=== PATIENT | male | born 1970 | race Caucasian/White ===

== ENCOUNTER 2019-04-27 12:07 | Inpatient (IN) | payer OTHER ==
[~2019-04-27] VITALS: Ht 193 cm; Wt 92.3 kg
--- NOTE | ~2019-04-27 | CON ---
[address] [address] CONSULTATION Name: NALDO CHINO Room: [address] IN .R.#: [id number] Admission: 04/27/19 Attend Phys: Trish Whitman Discharge: Date of : 74 Report #: [id number] THIS REPORT FOR: //name// CC: Trish Villareal TAX COMPLIANCE REPRESENTATIVE DICTATED BY: Kiara Bruner [facility] DATE OF SERVICE: 04/29/2019 Please note at the time of this dictation, the patient was seen and physically examined by myself. REASON FOR CONSULTATION: Ongoing nausea, vomiting, abdominal pain, history of gastroparesis. HISTORY OF PRESENT ILLNESS: This is a 49-year-old male who presents to the Emergency Room with having intractable nausea and vomiting for the past 3 days. When he gets this, he has severe abdominal pain throughout his abdomen. He has not noticed any bright red blood or any coffee ground emesis. He has not noted any bright red blood or black tarry stools either. He states he may have bouts of constipation up to a week and then he will have diarrhea preceding that. The patient states that he will have episodes of this reoccurring 2-3 times a year and no one can figure out what is going on. He states back in 2014, he saw [facility]. He had upper and lower scopes done, which essentially he states were negative. He had a gastric emptying test done and they said it was slow and they placed him on Reglan. The patient states he has been taking that ever since and then his PCP refills that for him on a regular basis. In talking with the patient, it is noted that he does have a fine tremor, asking him further if this tremor has gotten worse since being on the Reglan and he is unclear of that. He states he does have a family history of tremors that has been noted within his father in the past as well. He has never seen Neurology regarding this and has never made an association with taking the Reglan that that has worsened his tremor. In talking with his mother, she came in during half of the consultation. She states that his tremors are not present all the time whether or not these are associated with any of his drinking, it is hard to detect. The patient tells me that he only drinks 5-6 beers a day. However, in previous notes in reviewing his chart, he states that he drinks 5 or 6 pack every day along with vodka tonics on the weekends. It is hard to tell then, which is the true depiction. Prior to coming in, he had not drank for 3 days so as to whether or not he is having some alcohol withdrawal or not, it is also noted that he does have some elevated LFTs as well with an acute hepatitis panel being negative on admission. He does also complain of gas and bloating that will make his acid reflux worse, which he does [place] [address] CONSULTATION Name: NALDO CHINO Room: [address] [id number] Admission: 04/27/19 Attend Phys: Trish Whitman Discharge: Date of : 74 Report #: [id number] ALLERGIES: No known drug allergies. MEDICATIONS FROM HOME: Zofran, Zoloft, metoclopramide and Prilosec. PAST MEDICAL HISTORY: Nausea, vomiting, gastroparesis, depression, GERD, and history of alcoholism. PAST SURGICAL HISTORY: Vasectomy, otherwise negative. FAMILY HISTORY: Noncontributory. SOCIAL HISTORY: Alcohol use, he does state daily at various who talks to him, he denies any marijuana use and he denies any illegal drug use at this time. REVIEW OF SYSTEMS: Twelve-point review of systems is essentially negative except what is mentioned in the HPI. PHYSICAL EXAMINATION: VITAL SIGNS: Temperature 36.6, pulse 82, respirations 14, blood pressure 129/91. HEART: Regular rate and rhythm. LUNGS: Diminished. ABDOMEN: Soft, positive bowel sounds in all 4 quadrants with some diffuse tenderness noted to palpation. LABORATORY DATA: Hemoglobin on admission was 17.1, likely dehydrated, he is 13.6, white count of 4, platelets 187. GFR is 90, total bilirubin 0.9, alkaline phosphatase 61, ALT 130, AST is 119. His albumin is 3.1. CT showed fatty liver, ultrasound confirming that, gallbladder is normal. Acute hepatitis was negative at this time. He was positive for benzos as well. It was noted back in 10/2017 from [facility] that his total bilirubin was 2.9 at that particular time, which was one of his hospitalizations. IMPRESSION: 1. Nausea and vomiting has improved. 2. Abdominal pain, improved. 3. Gastroparesis. 4. Gas and bloating, recurrent, long-term PPI use. 5. Elevated LFTs. 6. Fatty liver disease. 7. Tremors. 8. Alcohol use regularly. 9. Urinary tract infection. PLAN: 1. Need to obtain medical records from [facility] [place] [address] CONSULTATION Name: NALDO CHINO Room: [address] IN [facility]#: [id number] Admission: 04/27/19 Attend Phys: Trish Whitman Discharge: Date of : 74 Report #: [id number] [facility] to see what has been done on previous admissions and workup. 2. Outpatient breath test in our office. 3. Once we obtain these records and review and discuss with Dr. Orozco, we will have further recommendations at that time. Thank you for allowing us to participate in this patient's care. Please do not hesitate to call with any questions in regard to this consult. By: [id number] [id number] Orozco MD /nt
[~2019-04-27 12:07] MED LIST: HYDROCODONE-AP1 EAC6 PO; NAPROSYN500 MG PO; NORCO 5-325 TA1 EACH PO; ROBAXIN 750 MG750 M1 PO; SKELAXIN 800 M800 MG PO; ZANTAC 150MG T150 MG PO
[2019-04-27 12:23] VITALS: BP 152/103
[2019-04-27] MEDS ORDERED: ZOLOFT25 MG PO (12:25)
[2019-04-27] MEDS ORDERED: REGLAN 10 MG TA10 MG PO (12:25)
[2019-04-27] MEDS ORDERED: PRILOSEC OTC20 MG PO (12:25)
[2019-04-27] MEDS ORDERED: ZOFRAN4 MG PO (12:26)
[2019-04-27 12:43] LABS: ABSOLUTE EOSINOPHILS 0.1 thou/uL (0.0-0.7); ABSOLUTE LYMPHOCYTES 1.4 thou/uL (0.8-5.3); ABSOLUTE MONOCYTES 0.6 thou/uL (0.0-1.2); ABSOLUTE NEUTROPHILS 3.3 thou/uL (1.6-8.1); BASOPHILS 0.8 %; EOSINOPHILS 1.4 %; HEMATOCRIT 48.4 % (42.0-52.0); HEMOGLOBIN 17.1 gm/dL (14.0-18.0); LYMPHOCYTES 26.1 %; MCH 33.3 pg (26.0-34.0); MCHC 35.4 g/dL (28.0-37.0); MCV 94.2 fL (80.0-100.0); MONOCYTES 10.3 %; MPV 7.7 fl. (7.2-11.1); NUCLEATED RBCS 0 /100WBC; PLATELET COUNT* 260 thou/uL (150-400); POLYS 61.4 %; RBC 5.14 mil/uL (4.50-6.00); RDW-CV 13.4 % (10.5-14.5); WBC 5.4 thou/uL (4.0-11.0)
[2019-04-27 12:55] LABS: CALCIUM 10.2 mg/dL (8.5-10.1); CREATININE 1.2 mg/dL (0.6-1.3); INR 1.1; POTASSIUM 3.5 mmol/L (3.5-5.1); PROTIME 11.1 Seconds (9.20-11.50)
[2019-04-27 13:00] LABS: ALBUMIN 4.5 g/dL (3.4-5.0); TOTAL BILIRUBIN 2.1 mg/dL (<0.1-1.0)
[2019-04-27 13:04] LABS: URINE BLOOD 3+ (Negative); URINE CLARITY CLEAR; URINE COLOR DARK YELLOW; URINE GLUCOSE-RANDOM TRACE (Negative); URINE KETONES TRACE (Negative); URINE LEUKOCYTES-REFLEX NEGATIVE (Negative); URINE PROTEIN 2+ (Negative); URINE UROBILINOGEN >= 8.0 E.U./dl (0.2-1.0)
[2019-04-27 13:06] LABS: ICTOTEST (BILI CONFIRMATORY) Negative (Negative); URINE BILIRUBIN 1+ (Negative); URINE NITRITE-REFLEX POSITIVE (Negative)
[2019-04-27 13:10] LABS: SQUAMOUS NONE SEEN /LPF (0-3)
[2019-04-27 13:11] LABS: URINE RBC >20 Many /HPF (0-2)
[2019-04-27 13:12] LABS: AMP/METHAMP Negative (Negative); BACTERIA-REFLEX 1-9 Few /HPF (None Seen); BARBITURATES Negative (Negative); BENZODIAZEPINES POSITIVE (Negative); COCAINE Negative (Negative); METHADONE Negative (Negative); OPIATES Negative (Negative); PCP Negative (Negative); THC Negative (Negative); URINE WBC-REFLEX 0-5 Rare /HPF (0-5)
[2019-04-27 13:13] LABS: CASTS None Seen /LPF (None Seen); CRYSTALS None Seen /LPF (None Seen); MUCUS >6 Heavy strn/LPF (None Seen)
[2019-04-27 15:14] VITALS: BP 147/96
--- NOTE | 2019-04-27 17:28 | NUR ---
ADMISSION COMPLETED IN ED PRIOR TO TRANSFERING PATIENT TO [facility] AND ASSUMING CARE ON THE INPATIENT SIDE.
[2019-04-27 17:29] VITALS: BP 147/96
[2019-04-27 20:00] VITALS: BP 123/86
--- NOTE | 2019-04-27 20:15 | NUR ---
PATIENT TRANSFERED TO INPATIENT UNIT. TELEMETRY APPLIED. REPORT GIVEN TO NIGHT NURSE.
[2019-04-28] VITALS: BP 137/95
--- NOTE | 2019-04-28 02:02 | NUR ---
ASSUMED PT CARE AT APPROX 1930. PT IS AWAKE AND ORIENTED X4. VSS ON ROOM AIR. CAMERA REPAIRER IN PLACE TRACING SR. PT COMPLAINED OF ABDOMNAL PAIN, PARTIALLY RELIEVED BY PAIN MEDS GIVEN PER SEP. CIWA DONE CHARTED. CALL LIGHT WITHIN REACH. FALL PRECAUTIONS IN PLACE. HOURLY ROUNDING DONE FOR PT SAFETY. REPORT GIVEN TO ARCHIE DENNIS.
[2019-04-28 04:00] VITALS: BP 123/85
[2019-04-28 05:37] LABS: HEMATOCRIT 40.3 % (42.0-52.0); MCH 32.7 pg (26.0-34.0); MCV 96.2 fL (80.0-100.0); RBC 4.19 mil/uL (4.50-6.00); RDW-CV 13.5 % (10.5-14.5); WBC 3.9 thou/uL (4.0-11.0)
[2019-04-28 05:56] LABS: HEMOGLOBIN 13.7 gm/dL (14.0-18.0)
[2019-04-28 06:09] LABS: CALCIUM 8.6 mg/dL (8.5-10.1); CREATININE 0.9 mg/dL (0.6-1.3); POTASSIUM 3.4 mmol/L (3.5-5.1)
--- NOTE | 2019-04-28 06:16 | NUR ---
ASSUMED PATIENT CARE AT 0200. PATIENT RESTED QUIETLY THROUGHOUT THE REST OF SHIFT.
[2019-04-28 07:33] VITALS: BP 124/87
--- NOTE | 2019-04-28 08:44 | EKG ---
[place] [address] ELECTROCARDIOGRAM REPORT Name: NALDO CHINO Room: [address] ADM IN .R.#: [id number] Admission: 04/27/19 Attend Phys: Trish Whitman Discharge: Date of : 74 Report #: [id number] THIS REPORT FOR: //name// [facility] ED Test Date: 2019-04-27 Test Time: 15:09:23 Pat Name: NALDO CHINO Department: Room: [facility] Gender: M Digital Marketing Analyst: TERESITA : 1970 Requested By: Timothy Hutchinson Order Number: [id number] MD: Darin Vazquez Measurements Intervals [place] Rate: 79 P: 31 FL: 183 QRS: -36 QRSD: 106 T: 62 QT: 419 QTc: 481 Interpretive Statements Sinus rhythm Incomplete RBBB and LAFB Borderline low voltage, extremity leads Abnormal R-wave progression, early transition Borderline prolonged QT interval Baseline wander in lead(s) I,III,aVL No previous ECG available for comparison Electronically Signed On 04-28-2019 8:44:36 CDT by Darin Vazquez [email or web address] <ELECTRONICALLY SIGNED> By: Darin Vazquez MD, FACC 04/28/19 0844 1509 1509 Darin Vazquez MD, FACC /EPI
--- NOTE | 2019-04-28 09:04 | NUR ---
ASSUMED CARE OF PT AT 0730. PT RESTING IN BED. PT A&0X4, DENIES ANY PAIN AT THIS TIME, PT GIVEN PAIN MEDICATION BY NOC SHIFT AT APPROXIMATELY 0545. PT DENIES ANY NAUSEA OR SHORTNESS OF BREATH. CIWA COMPLETED-2. REFER TO CHARTING. TRACING SR ON THE PAROLE OFFICER. ON RA SAT 97%. PT UP WITH SBA TO BATHROOM. PT NPO FOR ABDOMINAL ULTRASOUND THIS AM. PT GOAL FOR TODAY IS MAINTAIN CIWA BELOW 5, INCREASE ACTIVITY, REPLACE POTASSIUM PER ELECTROLYTE PROTOCOL AND INITIATE DISCHARGE PLANNING. AM ASSESSMENT CHARTED. MEDICATIONS PER SEP. PT REPOSITIONS SELF. HOURLY ROUNDING OBSERVED. BED IN LOW POSITION. BED ALARM IN PLACE. FALL PRECAUTIONS IN PLACE. CALL LIGHT WITHIN REACH. WILL CONTINUE PLAN OF CARE.
[2019-04-28 11:52] VITALS: BP 114/75
[2019-04-28 12:23] LABS: SGOT 153 U/L (15-37); SGPT 126 U/L (30-65)
--- NOTE | 2019-04-28 14:21 | NUR ---
Pt is A&O. Resides at home with family. Active and independent. No DME. No hx of HH or SNF. Goal is home at dc, Pt declined ETOH tx info.
[2019-04-28 17:00] VITALS: BP 113/70
--- NOTE | 2019-04-28 17:42 | NUR ---
NO ACUTE CHANGES THROUGHOUT SHIFT. REFER TO CHARTING. PT PROGRESSING TOWARDS GOALS- CIWA HAS REMAINED 2-3 TODAY WITH ORAL SCHEDULED ATIVAN. NO IV ATIVAN NEEDED. POTASSIUM REPLACED PER ELECTROLYTE PROTOCOL. PT HAD ABDOMINAL ULTRASOUND- REFER TO RESULTS. FAMILY AT BEDSIDE THIS AFTERNOON. CONTINUES TO TRACE SR ON THE SUMMER SESSIONS DIRECTOR. ON RA SAT UPPER 90'S. PT DENIES ANY PAIN OR SHORTNESS OF BREATH THROUGHOUT SHIFT. PT UP WITH SBA TO BATHROOM. IVF. MEDICATIONS PER SEP. PT REPOSITIONS SELF. HOURLY ROUNDING OBSERVED. BED IN LOW POSITION. BED ALARM IN PLACE. FALL PRECAUTIONS IN PLACE. CALL LIGHT WITHIN REACH. WILL CONTINUE PLAN OF CARE.
[2019-04-28 20:00] VITALS: BP 113/80
[2019-04-29] VITALS (8 sets, daily range): BP systolic 122–146; BP diastolic 82–98
--- NOTE | 2019-04-29 04:36 | NUR ---
ASSUMED PT CARE AT APPROX 1930. PT IS AWAKE AND ORIENTED X4. VSS ON ROOM AIR. AUTOMATIC SPINNING LATHE SETTER IN PLACE TRACING SR. ALCOHOL WITHDRAWAL ASSESMENT DONE CHARTED. PT C/O LUQ PAIN THAT IS PARTIALLY RELIEVED BY PAIN MEDICATION GIVEN PER MAR. CALL LIGHT WITHIN REACH. FALL PRECAUTIONS IN PLACE. HOURLY ROUNDING DONE FOR PT SAFETY.
[2019-04-29 05:22] LABS: HEMOGLOBIN 13.6 gm/dL (14.0-18.0); MCV 97.1 fL (80.0-100.0); MPV 8.2 fl. (7.2-11.1); RBC 4.12 mil/uL (4.50-6.00); RDW-CV 13.4 % (10.5-14.5)
[2019-04-29 05:52] LABS: ALBUMIN 3.1 g/dL (3.4-5.0); CALCIUM 8.2 mg/dL (8.5-10.1); CREATININE 0.9 mg/dL (0.6-1.3); POTASSIUM 3.9 mmol/L (3.5-5.1); TOTAL BILIRUBIN 0.9 mg/dL (<0.1-1.0); TOTAL PROTEIN 6.5 g/dL (6.4-8.2)
[2019-04-29 10:10] LABS: HEPATITIS B SURFACE AG Negative (Negative)
--- NOTE | 2019-04-29 11:06 | NUR ---
Cm provided Pt with [facility] community resources.
--- NOTE | 2019-04-29 17:09 | NUR ---
ASSUMED CARE OF PT AT 0730. PT A&0X4, DENIES ANY PAIN OR SHORTNESS OF BREATH. PT SLEEPY THROUGHOUT SHIFT. TRACING SR ON THE PIGMENT WEIGHER. CIWAS CHARTED. RANGING 2-4, SCHEDULED PO ATIVAN CHARTED. GI CONSULT IN PLACE. STOOL TO BE OBTAINED. PT MOTHER AT BEDSIDE THIS AFTERNOON AND UPDATED ON CURRENT PLAN OF CARE. PT UP WITH 1 ASSIST TO BATHROOM. IVF. ON RA SAT UPPER 90'S. AM ASSESSMENT CHARTED. MEDICATIONS PER SEP. PT REPOSITIONS SELF. HOURLY ROUNDING OBSERVED. BED IN LOW POSITION. BED ALARM IN PLACE. FALL PRECAUTIONS IN PLACE. CALL LIGHT WITHIN REACH. WILL CONTINUE PLAN OF CARE.
[2019-04-30] VITALS (7 sets, daily range): BP systolic 116–143; BP diastolic 77–94
--- NOTE | 2019-04-30 06:09 | NUR ---
ASSUMED PATIENT CARE AT 1900. ASSESSMENT COMPLETED CHARTED. VSS. CIWA CHARTED. PRN MEDS GIVEN PER EMAR. PATIENT FELL, DOCTOR NOTIFIED, FAMILY NOTIFIED, POST-FALL ASSESSMENT CHARTED. PRN SITTER AT BEDSITE FOR PATIENT SAFETY, PATIENT AGITATED AT BEGINNING OF SHIFT AND ATTEMPTING TO LEAVE. PATIENT IMPULSIVE THROUGH THE NIGHT. HOURLY ROUNDING IN PLACE FOR PATIENT SAFETY. CLWR.
--- NOTE | 2019-04-30 19:00 | NUR ---
ASSUMED CARE OF PT AT 0730. PT A&02-4, FORGETFUL AND CONFUSED AT TIMES. IMPULSIVE AT TIMES. SITTER AT BEDSIDE. CIWA CHARTED. PT IMPULSIVE THIS AFTERNOON- DEMANDING TO FIND HIS CLOTHES AND LEAVE. PT UNSTEADY ON FEET. SECURITY NOTIFIED-, MOTHER AT BEDSIDE, PT WILLING TO GET BACK IN BED. SCHEDULED PO ATIVAN GIVEN WITH RELIEF. PT CURRENTLY SITTING UP IN BED WITH SITTER AT BEDSIDE AND MOTHER AT BEDSIDE WELL. PT CURRENTLY A&0X4, DENIES ANY PAIN OR SHORTNESS OF BREATH. TRACING SR ON THE RECEIVING BARN CUSTODIAN. ON RA SAT UPPER 90'S. PT HAD A BOWEL MOVEMENT TODAY-GUIAC NEGATIVE. PT NPO AFTER MIDNIGHT FOR EGD TOMORROW. AM ASSESSMENT CHARTED. MEDICATIONS PER SEP. PT REPOSITIONS SELF. HOURLY ROUNDING OBSERVED. BED IN LOW POSITIO. BED ALARM IN PLACE. FALL PRECAUTIONS IN PLACE. CALL LIGHT WITHIN REACH. WILL CONTINUE PLAN OF CARE.
[2019-05-01] VITALS (9 sets, daily range): BP systolic 108–131; BP diastolic 72–91
[2019-05-01 04:42] LABS: HEMATOCRIT 41.6 % (42.0-52.0); MCH 32.8 pg (26.0-34.0); MCHC 33.6 g/dL (28.0-37.0); MCV 97.6 fL (80.0-100.0); MPV 8.6 fl. (7.2-11.1); RBC 4.26 mil/uL (4.50-6.00); RDW-CV 13.6 % (10.5-14.5)
[2019-05-01 05:01] LABS: CALCIUM 9.2 mg/dL (8.5-10.1); POTASSIUM 3.6 mmol/L (3.5-5.1)
--- NOTE | 2019-05-01 05:57 | NUR ---
PT SLEPT MOST OF SHIFT. ASSESSMENT DOCUMENTED. MEDS GIVEN PER E-MAR. IV PATENT, FLUIDS INFUSING. NO REPORTS OF PAIN OR NAUSEA THIS SHIFT. SITTER REMAINED AT BEDSIDE. PT NPO AFTER 0000. WILL CONTINUE WITH PLAN OF CARE.
--- NOTE | 2019-05-01 11:23 | NUR ---
Pt having EGD today.
--- NOTE | 2019-05-01 18:03 | NUR ---
VSS, ASSUMED CARE IN THE AM, ASSESSMENT PERFORMED AND CHARTED, FALL PRECAUTIONS IN PLACE AND CALL LIGHT IN REACH, PT IS A&O4, ON RA, TRACING SR/ST ON THE MONITOR, PT DENIES ANY PAIN AT THIS TIME, PT HAS COMPLETED EDG, ETOH W/ IS AT 2, PT IS UP WITH STAND BY, HOURLY ROUNDS COMPLETED AND WILL FOLLOW WITH PLAN OF CARE.
[2019-05-02] VITALS (7 sets, daily range): BP systolic 103–129; BP diastolic 69–82
--- NOTE | 2019-05-02 04:46 | NUR ---
PT ALERT AND ORIENTED. HR TACHY. VSS ON RA. ASSESSMENT DOCUMENTED. FALL PRECAUTION IN PLACE. MEDS GIVEN PER EMAR. ONLY SCHLD ATIVAN GIVEN THIS SHIFT. PT SLEPT MOST OF SHIFT. CALL LIGHT WITHIN REACH. HOURLY ROUNDIGNS MADE. WILL CONTINUE PLAN OF CARE.
--- NOTE | 2019-05-02 09:11 | NUR ---
VSS, ASSUMED CARE IN THE AM, ASSESSMENT PERFORMED AND CHARTED, FALL PRECAUTIONS IN PLACE AND CALL LIGHT IN REACH, PT IS A&O4 AND UP WITH STAND BY ASSIST, PT IS ON RA AND IS TRACING SR ON THE MONITOR, PT STATES PAIN IN L LOWER ABD, PT GOAL IS SAFETY AND IMPROVE ACTIVITY, WILL FOLLOW WITH PLAN OF CARE, ETOH W/ DRAWL.
[2019-05-03] VITALS (7 sets, daily range): BP systolic 106–148; BP diastolic 64–92
--- NOTE | 2019-05-03 01:33 | NUR ---
ASSUMED CARE AT 1930. PATIENT PLEASANT AND COOPERATIVE WITH CARES. CIWA 2 R/T TREMORS. REPORT FROM DAYSHIFT INCLUDED THAT MOTHER OF PATIENT REPORTED PATIENT HAD MILD TREMORS PRIOR TO THIS ADMISSION. UP WITH SAFE GAIT IN ROOM INDEPENDENTLY. VITAL SIGNS STABLE WITH INTERMITTANT TACHYCARDIA WITH ACTIVITY. PATIENT STATES THE PLAN IS FOR DISCHARGE SATURDAY. RESTING QUIETLY ON HOURLY ROUNDS. CONTINUE TO MONITOR.
--- NOTE | 2019-05-03 04:31 | NUR ---
NO CHANGES FROM PREVIOUS ENTRY. PROGRESSING TOWARDS DISCHARGE GOALS. DIDN'T SLEEP. TALKING TO FRIENDS ALL NIGHT ON THE PHONE. CONTINUE TO MONITOR.
--- NOTE | 2019-05-03 16:17 | NUR ---
VSS, ASSUMED CARE IN THE AM, ASSESSMENT PERFOREMD AND CHARTED, FALL PRECAUTIONS IN PLACE AND CALL LIGHT IN REACH, PT IS A&O4 AND IS TRACING SR ON THE MONITOR, PT STATES PAIN IN LLQ IN ABD, PT IS UP AD HEIDY AND HIS GOAL IS SAFETY WILL FOLLOW WITH PLAN OF CARE AND COMPLETE HOURLY ROUNDS.
[2019-05-04] VITALS: BP 118/77
[2019-05-04 04:00] VITALS: BP 131/89
--- NOTE | 2019-05-04 07:00 | NUR ---
VSS. SEE MAR. SEE CHARTING. PROGRESSING TOWARDS GOALS. HOURLY ROUNDING FOR SAFETY
[2019-05-04 07:05] VITALS: BP 107/74
--- NOTE | 2019-05-04 09:00 | NUR ---
INITAL ASSESSMENT COMPLETED CHARTED. VSS. TRACING SR ON MONITOR. PT REPORTS FLANK PAIN. PT ALSO C/O LOOSE STOOLS. PT DENIES ANY FURTHER NEEDS AT THIS TIME. HOURLY ROUNDING AND FALL PREAUTIONS IN PLACE. CLWR.
[2019-05-04] MEDS ORDERED: REGLAN 10 MG TA10 MG PO (10:06)
[2019-05-04] MEDS ORDERED: SEROQUEL 50 MG50 MG PO (10:06)
[2019-05-04] MEDS ORDERED: SUPER THERAVIT1 EACH PO (10:06)
[2019-05-04 12:33] VITALS: BP 117/76
[2019-05-04 14:14] VITALS: BP 117/76
== END 2019-05-04 14:45 | disposition home or self-care (01) | DRG 432 ==
LOC: M.ERS 12:07 → M.2W 13:55 → M.TBA-ER 13:55 → M.2W 18:39
PROVIDERS: Family Medicine; Internal Medicine; Physician Assistant; ADMIT Family Medicine
PROC: 0DJ08ZZ Inspection of Upper Intestinal Tract, Via Natural or Artificial Opening Endoscopic (ICD-10-PCS; principal; 2019-05-01)
DX: K70.10 Alcoholic hepatitis without ascites (principal); K29.71 Gastritis, unspecified, with bleeding; G93.41 Metabolic encephalopathy; N39.0 Urinary tract infection, site not specified; F10.239 Alcohol dependence with withdrawal, unspecified; K86.0 Alcohol-induced chronic pancreatitis; K31.84 Gastroparesis; F32.9 Major depressive disorder, single episode, unspecified; Y90.9 Presence of alcohol in blood, level not specified; R25.1 Tremor, unspecified; K76.0 Fatty (change of) liver, not elsewhere classified; E80.6 Other disorders of bilirubin metabolism; E83.52 Hypercalcemia; E87.6 Hypokalemia; N42.89 Other specified disorders of prostate; K21.0 Gastro-esophageal reflux disease with esophagitis; N32.0 Bladder-neck obstruction; Z98.52 Vasectomy status; Z79.899 Other long term (current) drug therapy; Z87.891 Personal history of nicotine dependence

== ENCOUNTER 2021-07-03 11:11 | Inpatient (IN) | payer OTHER ==
[~2021-07-03] VITALS: Ht 193 cm; Wt 97.5 kg
[~2021-07-03 11:11] MED LIST changes: +PRILOSEC OTC20 MG PO; +REGLAN 10 MG TA10 MG PO; +SEROQUEL 50 MG50 MG PO; +SUPER THERAVIT1 EACH PO; +ZOFRAN4 MG PO; +ZOLOFT25 MG PO
[2021-07-03 11:15] VITALS: BP 151/98
[2021-07-03 11:43] LABS: ABSOLUTE LYMPHOCYTES 1.4 thou/uL (0.8-5.3); ABSOLUTE MONOCYTES 0.5 thou/uL (0.0-1.2); ABSOLUTE NEUTROPHILS 4.6 thou/uL (1.6-8.1); BASOPHILS 0.7 %; EOSINOPHILS 0.2 %; HEMATOCRIT 47.3 % (42.0-52.0); HEMOGLOBIN 16.5 gm/dL (14.0-18.0); LYMPHOCYTES 20.9 %; MCH 33.2 pg (26.0-34.0); MCHC 34.8 g/dL (28.0-37.0); MCV 95.3 fL (80.0-100.0); MONOCYTES 7.1 %; MPV 7.7 fl. (7.2-11.1); NUCLEATED RBCS 0 /100WBC; PLATELET COUNT* 197 thou/uL (150-400); POLYS 71.1 %; RBC 4.96 mil/uL (4.50-6.00); RDW-CV 14.5 % (10.5-14.5); WBC 6.5 thou/uL (4.0-11.0)
[2021-07-03 12:06] LABS: INFLUENZA A ANTIGEN Negative (Negative); INFLUENZA B ANTIGEN Negative (Negative)
[2021-07-03 12:06] LABS: CALCIUM 9.4 mg/dL (8.5-10.1); CREATININE 1.3 mg/dL (0.6-1.3); POTASSIUM 3.2 mmol/L (3.5-5.1)
[2021-07-03 12:16] LABS: MAGNESIUM 1.7 mg/dL (1.8-2.4); TOTAL BILIRUBIN 1.9 mg/dL (<0.1-1.0); TOTAL PROTEIN 8.6 g/dL (6.4-8.2)
--- NOTE | 2021-07-03 12:37 | EKG ---
[place] [address] ELECTROCARDIOGRAM REPORT Name: NALDO CHINO Room: [facility]#: [id number] Admission: 07/03/21 Attend Phys: Discharge: Date of : 74 Date of Service: 07/03/21 1127 Report #: [id number] THIS REPORT FOR: //name// [facility] ED Test Date: 2021-07-03 Test Time: 11:27:37 Pat Name: NALDO CHINO Department: Room: Gender: Candles Pourer: : 1970 Requested By: Gold Morrison Order Number: [id number] MD: Matthew Patten Measurements Intervals [place] Rate: 140 P: 73 DE: 145 QRS: -89 QRSD: 96 T: 70 QT: 278 QTc: 424 Interpretive Statements Sinus tachycardia IVCD of the right eye Inferior infarct, old Compared to ECG 04/27/2019 15:09:23 Myocardial infarct finding now present Sinus rate has increased Left anterior fascicular block no longer present Incomplete right bundle-branch block persists Electronically Signed On 07-03-2021 12:36:55 NATURAL GAS PLANT TECHNICIAN by Matthew Patten [email or web address] <ELECTRONICALLY SIGNED> By: Matthew Patten MD, FACC 07/03/21 1236 1127 1127 Matthew Patten MD, FACC /EPI
[2021-07-03 15:59] LABS: AMP/METHAMP Negative (Negative); BARBITURATES Negative (Negative); BENZODIAZEPINES Negative (Negative); COCAINE Negative (Negative); METHADONE Negative (Negative); OPIATES Negative (Negative); PCP Negative (Negative); THC Negative (Negative)
[2021-07-03 16:08] LABS: URINE BILIRUBIN NEGATIVE (Negative); URINE BLOOD 2+ (Negative); URINE CLARITY CLEAR; URINE COLOR YELLOW; URINE GLUCOSE-RANDOM NEGATIVE (Negative); URINE KETONES 1+ (Negative); URINE LEUKOCYTES-REFLEX NEGATIVE (Negative); URINE NITRITE-REFLEX NEGATIVE (Negative); URINE PROTEIN NEGATIVE (Negative)
[2021-07-03 16:18] LABS: BACTERIA-REFLEX 1-9 Few /HPF (None Seen); SQUAMOUS 0-3 Few /LPF (0-3); URINE RBC >20 Many /HPF (0-2); URINE WBC-REFLEX 0-5 Rare /HPF (0-5)
[2021-07-03 16:19] LABS: CASTS None Seen /LPF (None Seen); CRYSTALS None Seen /LPF (None Seen)
[2021-07-03 21:15] VITALS: BP 123/76
[2021-07-03 23:50] VITALS: BP 125/86
[2021-07-04 00:10] VITALS: BP 136/85
[2021-07-04] MEDS ORDERED: LORAZEPAM 0.50.5 MG PO (00:32)
[2021-07-04 04:00] VITALS: BP 132/70
[2021-07-04 05:15] LABS: ABSOLUTE EOSINOPHILS 0.1 thou/uL (0.0-0.7); ABSOLUTE LYMPHOCYTES 1.2 thou/uL (0.8-5.3); ABSOLUTE MONOCYTES 0.3 thou/uL (0.0-1.2); ABSOLUTE NEUTROPHILS 1.9 thou/uL (1.6-8.1); BASOPHILS 0.7 %; EOSINOPHILS 1.9 %; HEMATOCRIT 40.5 % (42.0-52.0); LYMPHOCYTES 34.2 %; MCH 32.8 pg (26.0-34.0); MCHC 34.7 g/dL (28.0-37.0); MCV 94.6 fL (80.0-100.0); MONOCYTES 7.8 %; NUCLEATED RBCS 0 /100WBC; PLATELET COUNT* 128 thou/uL (150-400); POLYS 55.4 %; RBC 4.28 mil/uL (4.50-6.00); RDW-CV 14.4 % (10.5-14.5); WBC 3.4 thou/uL (4.0-11.0)
[2021-07-04 05:42] LABS: HEMOGLOBIN 14.1 gm/dL (14.0-18.0)
[2021-07-04 05:59] LABS: CALCIUM 8.2 mg/dL (8.5-10.1); CREATININE 0.9 mg/dL (0.6-1.3); POTASSIUM 3.1 mmol/L (3.5-5.1)
[2021-07-04 08:49] VITALS: BP 116/76
[2021-07-04 09:02] LABS: INR 1.1; PROTIME 11.2 Seconds (9.20-11.50)
[2021-07-04 10:07] LABS: ALBUMIN 3.2 g/dL (3.4-5.0); CALCIUM 8.3 mg/dL (8.5-10.1); CREATININE 0.9 mg/dL (0.6-1.3); MAGNESIUM 2.1 mg/dL (1.8-2.4); PHOSPHORUS* 2.6 mg/dL (2.5-4.9); POTASSIUM 3.9 mmol/L (3.5-5.1); TOTAL BILIRUBIN 2.6 mg/dL (<0.1-1.0); TOTAL PROTEIN 7.4 g/dL (6.4-8.2)
[2021-07-04 12:00] VITALS: BP 127/95
[2021-07-04 16:00] VITALS: BP 133/95
[2021-07-04 20:00] VITALS: BP 140/95
[2021-07-05] VITALS: BP 123/82
[2021-07-05 04:00] VITALS: BP 132/91
[2021-07-05 08:50] VITALS: BP 128/85
[2021-07-05 11:25] VITALS: BP 124/88
[2021-07-05 17:27] VITALS: BP 130/82
[2021-07-05 20:00] VITALS: BP 118/81
[2021-07-06] VITALS: BP 121/87
[2021-07-06 04:00] VITALS: BP 145/94
[2021-07-06 04:18] LABS: ABSOLUTE EOSINOPHILS 0.1 thou/uL (0.0-0.7); ABSOLUTE LYMPHOCYTES 1.4 thou/uL (0.8-5.3); ABSOLUTE MONOCYTES 0.4 thou/uL (0.0-1.2); ABSOLUTE NEUTROPHILS 3.1 thou/uL (1.6-8.1); BASOPHILS 0.4 %; HEMATOCRIT 40.1 % (42.0-52.0); HEMOGLOBIN 14.1 gm/dL (14.0-18.0); LYMPHOCYTES 27.8 %; MCH 33.6 pg (26.0-34.0); MCHC 35.1 g/dL (28.0-37.0); MCV 95.8 fL (80.0-100.0); MONOCYTES 7.3 %; MPV 8.4 fl. (7.2-11.1); NUCLEATED RBCS 0 /100WBC; PLATELET COUNT* 123 thou/uL (150-400); POLYS 62.5 %; RBC 4.19 mil/uL (4.50-6.00); RDW-CV 14.2 % (10.5-14.5); WBC 4.9 thou/uL (4.0-11.0)
[2021-07-06 04:51] LABS: ALBUMIN 3.1 g/dL (3.4-5.0); CALCIUM 8.3 mg/dL (8.5-10.1); CREATININE 1.1 mg/dL (0.6-1.3); MAGNESIUM 1.9 mg/dL (1.8-2.4); PHOSPHORUS* 2.4 mg/dL (2.5-4.9); POTASSIUM 3.7 mmol/L (3.5-5.1); TOTAL BILIRUBIN 1.7 mg/dL (<0.1-1.0); TOTAL PROTEIN 7.1 g/dL (6.4-8.2)
[2021-07-06 08:00] VITALS: BP 125/90
[2021-07-06 12:11] VITALS: BP 134/84
[2021-07-06 17:44] VITALS: BP 138/78
[2021-07-06 20:00] VITALS: BP 136/94
[2021-07-07] VITALS: BP 148/91
[2021-07-07 04:00] VITALS: BP 119/80
[2021-07-07 04:34] LABS: HEMATOCRIT 36.6 % (42.0-52.0); HEMOGLOBIN 12.9 gm/dL (14.0-18.0); MCHC 35.1 g/dL (28.0-37.0); MCV 96.8 fL (80.0-100.0); MPV 8.4 fl. (7.2-11.1); RBC 3.78 mil/uL (4.50-6.00); RDW-CV 14.1 % (10.5-14.5); WBC 4.2 thou/uL (4.0-11.0)
[2021-07-07 04:56] LABS: ALBUMIN 2.9 g/dL (3.4-5.0); MAGNESIUM 1.8 mg/dL (1.8-2.4); POTASSIUM 3.4 mmol/L (3.5-5.1); TOTAL BILIRUBIN 1.4 mg/dL (<0.1-1.0); TOTAL PROTEIN 6.4 g/dL (6.4-8.2)
[2021-07-07 08:16] VITALS: BP 108/77
[2021-07-07] MEDS ORDERED: LORAZEPAM 1 MG T1 MG PO (09:33)
[2021-07-07] MEDS ORDERED: ZOFRAN4 MG PO (09:49)
[2021-07-07 11:27] VITALS: BP 108/77
== END 2021-07-07 11:55 | disposition home or self-care (01) | DRG 392 ==
LOC: M.ERS 11:11 → M.2W 15:15 → M.TBA-ER 15:15 → M.2W 07-04 00:10
PROVIDERS: Emergency Medicine Emergency Medical Services; Internal Medicine; ADMIT Internal Medicine; ATTEND Internal Medicine
DX: K31.84 Gastroparesis (principal); F10.239 Alcohol dependence with withdrawal, unspecified; I47.1 Supraventricular tachycardia; E87.2 Acidosis; K70.10 Alcoholic hepatitis without ascites; K21.9 Gastro-esophageal reflux disease without esophagitis; E87.6 Hypokalemia; Z20.822 Contact with and (suspected) exposure to COVID-19; Z98.52 Vasectomy status; Z87.891 Personal history of nicotine dependence